=== PATIENT | female | born 1935 | race Caucasian/White ===

== ENCOUNTER → 2018-11-16 | Outpatient (CLI) | payer MEDICARE ==
--- NOTE | 2018-11-16 11:08 | PCVCIMAG ---
EXAM: BILATERAL LOWER EXTREMITY ARTERIAL DUPLEX INDICATION: Peripheral Arterial Disease. Leg pain. FINDINGS: Right Leg: Common femoral profunda femoral arteries are patent. Increased systolic velocity 536 cm/s mid [place] superficial femoral artery consistent with 95% stenosis. Popliteal artery is patent. 80% stenosis proximal anterior tibial artery which is otherwise patent throughout to the dorsalis pedis. Occlusion of the distal posterior tibial artery. Peroneal artery is patent. Left Leg: Common femoral and profunda femoral arteries are patent. 60-70% stenosis distal [place] superficial femoral artery. Popliteal artery is patent although the waveform is severely blunted which may indicate a more severe stenosis proximally. Occlusion of the anterior and posterior tibial arteries. Peroneal artery is patent. IMPRESSION: 95% stenosis mid [place] right superficial femoral artery. 80% stenosis proximal right anterior tibial artery. Occlusion distal right posterior tibial artery. 60-70% stenosis distal [place] left superficial femoral artery with question of a more severe stenosis which is nonvisualized. Occlusion of the left anterior and posterior tibial arteries. LOC:[id number]
== END | disposition home or self-care (01) ==
LOC: PCVCIMAG 10:05
PROVIDERS: ATTEND Nuclear Medicine Nuclear Cardiology
DX: I73.9 Peripheral vascular disease, unspecified (principal); I10 Essential (primary) hypertension; E78.00 Pure hypercholesterolemia, unspecified; I69.30 Unspecified sequelae of cerebral infarction; E11.9 Type 2 diabetes mellitus without complications; E78.5 Hyperlipidemia, unspecified
CPT/HCPCS: 93925; G0463

== ENCOUNTER → 2019-02-08 | Outpatient (CLI) | payer MEDICARE ==
--- NOTE | 2019-02-08 14:37 | PCVCIMAG ---
EXAM: VENOUS DUPLEX LEFT LEG INDICATION: Leg pain and swelling. FINDINGS: Left leg: No thrombus in the common femoral, main femoral, or popliteal veins. These veins are compressible with phasic flow. Calf veins are unremarkable where seen. IMPRESSION: No evidence of deep venous thrombosis in the left lower extremity as detailed above. LOC:[id number]
== END | disposition home or self-care (01) ==
LOC: PCVCIMAG 14:06
DX: R22.42 Localized swelling, mass and lump, left lower limb (principal)
CPT/HCPCS: 93971

== ENCOUNTER → 2019-04-19 | Outpatient (CLI) | payer MEDICARE ==
--- NOTE | 2019-04-19 12:01 | PCVCIMAG ---
EXAM: BILATERAL CAROTID DUPLEX INDICATION: Carotid Occlusive Disease. FINDINGS: Doppler Measurements (centimeters per second): RIGHT: Peak CCA-83, Peak ECA-268, Diastolic ICA-27, Peak ICA-99, ICA/CCA Ratio-1.2. LEFT: Peak CCA-68, Peak ECA-160, Diastolic ICA-13, Peak ICA-81, ICA/CCA Ratio-1.2. RIGHT CAROTID: The carotid bulb has mild plaque. The proximal internal carotid artery shows <40% stenosis. The common carotid artery shows no significant stenosis. The external carotid artery shows 70% stenosis. LEFT CAROTID: The carotid bulb has mild plaque. The proximal internal carotid artery shows <40% stenosis. The common carotid artery shows no significant stenosis. The external carotid artery shows 60% stenosis. Antegrade flow in both vertebral arteries. IMPRESSION: <40% stenosis of the right internal carotid artery with mild plaque. <40% stenosis of the left internal carotid artery with mild plaque. LOC:[id number]
--- NOTE | 2019-04-19 12:16 | PCVCIMAG ---
EXAM: BILATERAL LOWER EXTREMITY ARTERIAL DUPLEX INDICATION: Peripheral Arterial Disease. Leg pain. FINDINGS: Right Leg: Common femoral and profunda femoral arteries are patent. Superficial femoral artery and popliteal artery are patent. Occlusion of the proximal/mid anterior tibial and peroneal arteries. Occlusion throughout the posterior tibial artery. Left Leg: Common femoral artery is patent. Mild stenosis origin profunda femoral artery. 50-60% stenosis proximal left superficial femoral artery within the proximal portion of a prior stent. Mid/distal superficial femoral artery stent remains patent. Popliteal artery is patent. Previous tibioperoneal trunk stent is patent. The anterior tibial and posterior tibial arteries are occluded and this is unchanged. Peroneal artery is patent. IMPRESSION: Unchanged occlusion of the right anterior tibial, peroneal, and posterior tibial arteries as detailed above. 50-60% stenosis proximal left superficial femoral artery within the proximal portion of a prior stent. Previous left tibioperoneal trunk stent remains patent. Unchanged occlusion of the left anterior and posterior tibial arteries. LOC:[id number]
--- NOTE | 2019-04-19 16:51 | PCVCIMAG ---
EXAM: ULTRASOUND OF THE THYROID INDICATION: Thyroid nodules. FINDINGS: The right thyroid lobe measures 1.5 x 1.6 x 3.2 cm. The left thyroid lobe measures 1.6 x 1.9 x 4.1 cm. Diffusely coarse echotexture throughout both thyroid lobes. 0.3 x 0.5 x 0.6 cm solid nodule mid right thyroid lobe. 0.9 x 1.2 x 1.3 cm echogenic solid lesion mid to lower left thyroid lobe. IMPRESSION: 2 solid lesions in the thyroid which are indeterminate are noted the largest in the left thyroid lobe. Additionally there is diffusely coarse echotexture throughout the thyroid. 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 Patient was instructed to follow-up regarding her thyroid with her primary care physician and oncology. LOC:[id number]
== END | disposition home or self-care (01) ==
LOC: PCVCIMAG 10:13
PROVIDERS: ATTEND Nuclear Medicine Nuclear Cardiology
DX: I65.23 Occlusion and stenosis of bilateral carotid arteries (principal); I70.203 Unspecified atherosclerosis of native arteries of extremities, bilateral legs; E04.1 Nontoxic single thyroid nodule; E78.00 Pure hypercholesterolemia, unspecified; E11.9 Type 2 diabetes mellitus without complications; C91.01 Acute lymphoblastic leukemia, in remission; I10 Essential (primary) hypertension; Z79.4 Long term (current) use of insulin; Z79.82 Long term (current) use of aspirin; Z79.899 Other long term (current) drug therapy
CPT/HCPCS: 76536; 93880; 93925; G0463

== ENCOUNTER → 2019-05-31 | Outpatient (CLI) | payer MEDICARE ==
--- NOTE | 2019-05-31 13:28 | PCVCIMAG ---
APPROVED REPORT Study performed: 05/31/2019 10:37:59 EXAM: Comprehensive 2D, Doppler, and color-flow Echocardiogram Patient Location: Echo lab Room #: 2Status: routine BSA: 1.59 HR: 64 bpmBP: 156/70 mmHg Rhythm: NSR Other Information Study Quality: Adequate Risk Factors: Cardiac Risk Factors: HTN, Hyperlipidemia, DM Indications Diabetes Murmur Hypertension/HDD 2D Dimensions IVSd: 10.00 (7-11mm)LVOT Diam: 17.97 (18-24mm) LVDd: 42.24 mm PWd: 9.72 (7-11mm)Ascending Ao: 29.65 (22-36mm) LVDs: 22.97 (25-40mm) Left Atrium: 37.61 (27-40mm) Aortic Root: 16.95 mm LV Single Plane 4CH: 68.38 % LV Single Plane 2CH: 74.46 % Biplane EF: 71.5 % Volumes Left Atrial Volume (Systole) Single Plane 4CH: 57.00 mLSingle Plane 2CH: 51.50 mL Biplane LA Volume: 59.00 mLLA ESV Index: 37.00 mL/m2 Aortic Valve AoV Peak Alexandre.: 2.75 m/s AO Peak Gr.: 31.15 mmHgLVOT Max P.64 mmHg AO Mean Gr.: 18.84 mmHgLVOT Mean P.12 mmHg AO V2 Mean: 2.11 m/sLVOT Max V: 0.93 m/s AO V2 VTI: 63.40 cmLVOT Mean V: 0.70 m/s MARCO ANTONIO (VTI): 0.99 [id number] V1 VTI: 24.69 cm MARCO ANTONIO Vmax: 0.86 cm2 SV (LVOT): 62.59 mL Mitral Valve E/A Ratio: 0.8 MV Decel. Time: 217.18 ms MV E Max Alexandre.: 1.39 m/s MV A Alexandre.: 1.78 m/s IVRT: 65.74 ms Pulmonary Valve PV Peak Alexandre.: 0.92 m/sPV Peak Gr.: 3.40 mmHg Pulmonary Vein P Vein S: 0.76 m/sP Vein A: 0.36 m/s P Vein D: 0.42 m/sP Vein A Dur.: 79.6 msec P Vein S/D Ratio: 1.81 Tricuspid Valve TR Peak Alexandre.: 2.94 m/s TR Peak Gr.: 34.46 mmHg TV Vmax: 0.63 m/sPA Pressure: 42.00 mmHg Left Ventricle The left ventricle is normal size. There is normal LV segmental wall motion. There is normal left ventricular wall thickness. Left ventricular systolic function is hyperdynamic. LVEF is >70%. Grade I - abnormal relaxation pattern. Right Ventricle The right ventricle is normal size. The right ventricular systolic function is normal. Atria The left atrium size is normal. The right atrium size is normal. Aortic Valve Aortic valve is trileaflet. Moderate aortic valve sclerosis with reduced leaflet excursion. No aortic regurgitation is present. There is moderate to severe valvular aortic stenosis. Calculated aortic valve area is 0.9-1.0 cm2 with maximum pressure gradient of 30 mmHg and mean pressure gradient of 19 mmHg. Mitral Valve Moderate mitral annular calcification. Mitral valve leaflets open well. Trace to mild mitral regurgitation. No evidence of mitral valve stenosis. Tricuspid Valve The tricuspid valve is normal in structure. Mild to moderate tricuspid regurgitation. Pulmonic Valve The pulmonary valve is normal in structure. There is no pulmonic valvular regurgitation. Great Vessels The aortic root is normal in size. The ascending aorta is normal in size. Aortic arch is normal in caliber. IVC is normal in size and collapses >50% with inspiration. Pericardium There is no pericardial effusion. There is no pleural effusion. <Conclusion> The left ventricle is normal size. Left ventricular systolic function is hyperdynamic. LVEF is >70%. Grade I - abnormal relaxation pattern. The right ventricle is normal size. The left atrium size is normal. Aortic valve is trileaflet. Moderate aortic valve sclerosis with reduced leaflet excursion. There is moderate to severe valvular aortic stenosis. Calculated aortic valve area is 0.9-1.0 cm2 with maximum pressure gradient of 30 mmHg and mean pressure gradient of 19 mmHg. Moderate mitral annular calcification. Mitral valve leaflets open well. Mild to moderate tricuspid regurgitation. The aortic root is normal in size. There is no pericardial effusion.
== END | disposition home or self-care (01) ==
LOC: PCVCIMAG 10:04
PROVIDERS: ATTEND Internal Medicine Cardiovascular Disease
DX: I08.3 Combined rheumatic disorders of mitral, aortic and tricuspid valves (principal); R01.1 Cardiac murmur, unspecified; I73.9 Peripheral vascular disease, unspecified; I10 Essential (primary) hypertension; E11.649 Type 2 diabetes mellitus with hypoglycemia without coma; E78.00 Pure hypercholesterolemia, unspecified; C91.01 Acute lymphoblastic leukemia, in remission; I65.23 Occlusion and stenosis of bilateral carotid arteries; E78.5 Hyperlipidemia, unspecified; Z79.899 Other long term (current) drug therapy
CPT/HCPCS: 36415; 80061; 93005; 93306; G0463